=== PATIENT | female | born 1985 | race Two or more races ===

== ENCOUNTER 2024-08-26 11:03 | Emergency (ER) | payer MEDICAID, SELFPAY ==
--- NOTE | 2024-08-26 11:32 | EDNOTE_ITS ---
ED Wound/Laceration-RME/HPI General Chief Complaint: Wound/Laceration Stated Complaint: RIGHT THUMB LAC Time Seen by Provider: 08/26/24 11:30 Source: patient Arrival date/time: 08/26/24 11:03 39-year-old female with no known medical history presents to the emergency room with a chief complaint of a laceration to the right thumb that occurred while she was opening up a can. Mode of arrival: ambulatory Limitations: no limitations Related Data Previous Rx's ?Medication ?Instructions ?Recorded cephalexin 500 mg capsule 500 mg PO BID 7 days #14 caps 08/26/24 Allergies Allergy/AdvReac Type Severity Reaction Status Date / Time No Known Allergies Allergy Verified 07/01/21 20:18 Review of Systems Review of Systems Systems Reviewed: All systems reviewed, normal except as documented Constitutional Constitutional: Reports system reviewed and no additional complaints, except as documented, Denies fatigue, Denies fever(s), Denies headache(s) and Denies weakness Eyes Eyes: Reports system reviewed and no additional complaints, except as documented, Denies blurry vision and Denies change in vision ENT Ears, Nose, Mouth, and Throat: Reports system reviewed and no additional complaints, except as documented, Denies otalgia, Denies headache(s), Denies nasal congestion, Denies throat swelling and Denies vertigo Cardiovascular Cardiovascular: Reports system reviewed and no additional complaints, except as documented, Denies chest pain, Denies dyspnea and Denies dyspnea on exertion Respiratory Respiratory: Reports system reviewed and no additional complaints, except as documented, Denies chest congestion, Denies cough, Denies dyspnea, Denies dyspnea on exertion and Denies wheezing Gastrointestinal Gastrointestinal: Reports system reviewed and no additional complaints, except as documented, Denies abdominal pain, Denies cramping, Denies nausea and Denies vomiting Genitourinary Genitourinary: Reports system reviewed and no additional complaints, except as documented Musculoskeletal Musculoskeletal: Reports system reviewed and no additional complaints, except as documented and Denies back pain Integumentary/Breasts Skin/Breast: Reports system reviewed and no additional complaints, except as documented and Reports wounds (Laceration to the right thumb) Neurologic Neurologic: Reports system reviewed and no additional complaints, except as documented, Denies confusion, Denies headache(s), Denies lack of coordination, Denies vertigo and Denies weakness Psychiatric Psychiatric: Reports system reviewed and no additional complaints, except as documented, Denies anxiety, Denies confusion, Denies depression, Denies paranoia, Denies suicidal ideation and Denies tactile hallucinations Endocrine Endocrine: Reports system reviewed and no additional complaints, except as documented and Denies fatigue Hematologic/Lymphatic Hematologic/Lymphatic: Reports system reviewed and no additional complaints, except as documented and Denies lymphadenopathy Allergic/Immunologic Allergic/Immunologic: Reports system reviewed and no additional complaints, except as documented, Denies throat swelling, Denies urticaria and Denies wheezing Past Medical History Past Medical History CARDIAC: Negative Congestive Heart Failure RESPIRATORY: Negative Chronic Obstructive Pulmonary Disease (COPD) GENITOURINARY: Negative Renal Disease ENDOCRINE: Negative Diabetes Mellitus Type 1 or Diabetes Mellitus Type 2 Social History SMOKING STATUS: Never smoker ED Exam General Limitations: Present no limitations General appearance: Present alert and in no apparent distress Head Head exam: Present atraumatic Eye Eye exam: Present normal appearance, PERRL and EOMI ENT ENT exam: Present normal exam, normal oropharynx and mucous membranes moist Neck Neck exam: Present normal inspection, full ROM and trachea midline Chest Chest inspection: Present normal inspection and symmetric chest wall rise Respiratory Respiratory exam: Present normal lung sounds bilaterally Cardiovascular Cardiovascular exam: Present regular rate, normal rhythm and normal heart sounds Abdominal Exam Abdominal exam: Present soft and normal bowel sounds Extremities Exam Extremities exam: Present normal inspection and full ROM Expanded Upper Extremity Exam Shoulder exam: Present normal inspection Arm exam: Present normal inspection Elbow exam: Present normal inspection Forearm/Wrist exam: Present normal inspection Hand exam: Present tenderness, swelling and laceration Vascular exam: Normal capillary refill Back Exam Back exam: Present normal inspection and full ROM Neurological Exam Neurological exam: Present alert, oriented X3 and CN II-XII intact Psychiatric Psychiatric exam: Present normal affect and normal mood Skin Skin exam: Present warm, dry, intact and normal color Expanded Skin Exam Type of lesion: Present laceration Distribution: Present RUE Description: Present size and tenderness Course Quality Measures none Orders Category Date Time Status Set Up Suture Tray STAT Care 08/26/24 11:32 Active Wound Care NOW Care 08/26/24 11:32 Active Lidocaine 1% 20 ml [Xylocaine 1% 20 ML] Med 08/26/24 11:32 Discontinued 20 ml INFL X1 ONE Tet,Diphth,Pertuss(Acell)-Tdap [Boostrix Vacc] Med 08/26/24 11:32 Discontinued 0.5 ml IMI .ONCE ONE Vital Signs Vital signs: Vital Signs Temperature 98.4 F 08/26/24 12:00 Pulse Rate 77 08/26/24 12:00 Respiratory Rate 16 08/26/24 12:00 Blood Pressure 114/79 08/26/24 12:00 Pulse Oximetry (%) 98 08/26/24 12:00 Oxygen Delivery Method Room Air 08/26/24 12:00 Wound / Laceration MDM Narrative MDM Narrative:: 39-year-old female with no known medical history presents to the emergency room with a chief complaint of a laceration to the right thumb that occurred while she was opening up a can. Clinically the patient appears nontoxic and in no apparent distress. Physical examination shows a 4 cm irregular laceration to her right thumb that occurred while she was opening up a can with a can plasticator. The area was cleaned and prepped with Betadine a digital block was used with lidocaine. 8 regular four 0-0 sutures nylon were used to close and approximate the wound a dressing was placed tetanus vaccination was updated patient was discharged and educated to follow-up with primary care provider and return to the emergency room for any evidence of worsening signs or symptoms Patient data External records reviewed:: [facility] previous records Clinical information provided by:: patient Social determinants that could affect healthcare access:: none Patient has the following chronic illnesses:: N/A How is presenting disease/condition affected by chronic disease/condition?: no chronic disease Evaluation data The following diagnostics were reviewed and interpreted by me:: lab results and radiology exam(s) Lab and/or radiology exams considered but not ordered:: Labs and radiology exams considered but not ordered Interpretation Summary: N/A Medications / Prescriptions Medications or Prescriptions considered but not ordered:: Medication given Medication administrations:: Medication Administration History Discontinued Medications Diphtheria/Tetanus/Acell Pertussis (Diphth,Pertuss(Acell),Tet Vac 0.5 Ml Vial) 0.5 ml IMi .ONCE ONE Stop: 08/26/24 11:33 Last Admin: 08/26/24 11:39 Dose: 0.5 ml Documented By: DO Lidocaine HCl (Lidocaine Hcl 1% 20 Ml Vial) 20 ml INFL X1 ONE Stop: 08/26/24 11:33 Medication given Consultations Consultation(s) initiated? (list below): No Diagnosis Wound Differential Diagnosis: laceration, abrasion and avulsion of skin Most likely diagnosis given after review of the tests above:: Laceration Admission Indicated Admission indicated?: not indicated Admission Request Was there a request for admission?: No Disposition Plan Disposition Plan: Discharge Discharge Attestation Discharge Attestation: The patient and all family members were given an opportunity to ask questions and understood the discharge instructions. Discharge instructions specifically effects, indications for sooner follow up or return to the emergency department, and the expected course of current diagnosis. Patient condition: Stable Discharge Plan Plan Patient Disposition: HOME (Self Care) Disposition Comment: Stable Prescriptions/Referrals Prescriptions/Med Rec: New cephalexin 500 mg capsule 500 mg PO BID 7 Days Qty: 14 0RF Referrals: Danae Gregorio PA-C [Primary Care Provider] - In 1 week Problem List Clinical Impression: Laceration Patient/Caregiver Discharge Instructions Additional Instructions: Please follow-up with your primary care provider in the next 24 to 48 hours. You can return in 7 to 10 days for suture removal or follow-up with your primary care provider. For any evidence of worsening signs or symptoms please return to the emergency room immediately. Antibiotics are sent to your pharmacy please pick them up and take them as indicated. Please keep the area clean and dry Print Language: Arabic Stand Alone Forms: Parisa Award Info., Patient Portal Info Letter Vaccines Vaccines Given During Stay: TDaP NELLA/HAYLEY Supervising Physician HELENA Supervising Physician: Dr. Tolentino
[2024-08-26] MEDS: DIPHTH,PERTUSS(ACELL),TET VAC 0.5 ML VIAL IMi (11:39)
[2024-08-26 12:00] VITALS: BP 114/79; PULSE 77; RESP 16; TEMP 36.9; O2SAT 98; BMI 40.5
== END 2024-08-26 13:14 | disposition home or self-care (01) ==
PROVIDERS: Emergency Provider Emergency Medicine; PCP Physician Assistant
DX: S61.011A Laceration without foreign body of right thumb without damage to nail, initial encounter (principal); W26.8XXA Contact with other sharp object(s), not elsewhere classified, initial encounter; Z23 Encounter for immunization
CPT/HCPCS: 12002; 90471; 90715; 99283

== ENCOUNTER 2024-09-03 06:15 | Emergency (ER) | payer MEDICAID, SELFPAY ==
[2024-09-03 06:21] VITALS: BP 101/70; PULSE 82; RESP 18; TEMP 36.8; O2SAT 96
[2024-09-03] MEDS: cefTRIAXone 1,000 MG, LIDOCAINE 1% 20 ML 2.1 ML IM (06:57)
[2024-09-03] MEDS: ACETAMINOPHEN 500 MG TABLET 1000 MG PO (06:57)
--- NOTE | 2024-09-03 07:01 | EDNOTE_ITS ---
<Statement entered by Yesy Montoya MD - 09/03/24 07:39> As co-signing physician, I was present and available for consult prn. I concur with the plan and care as documented by the midlevel provider. ED Wound/Laceration-RME/HPI General Chief Complaint: Wound Recheck / Suture Removal Stated Complaint: SUTURE REMOVAL Time Seen by Provider: 09/03/24 06:26 Source: patient Arrival date/time: 09/03/24 06:15 This is a 39-year-old female who presents to the emergency department and request for suture removal of her right thumb. She reports she has had the sutures in for 8 days. Patient has noticed that her finger is slightly swollen and tender to palpation mild erythemic. She does report she took a course of antibiotics. Does states she did not wash or cleanse wound for the last 6 days. Has not followed up with her PCP for wound recheck. Denies fever, chills CMS intact. Mode of arrival: ambulatory Related Data Previous Rx's ?Medication ?Instructions ?Recorded mupirocin 2 % topical ointment 1 applic topical BID 7 days #15 09/03/24 grams sulfamethoxazole 800 1 tab PO BID 7 days #14 tabs 09/03/24 mg-trimethoprim 160 mg tablet (Bactrim DS) Allergies Allergy/AdvReac Type Severity Reaction Status Date / Time No Known Allergies Allergy Verified 09/03/24 06:17 Review of Systems Review of Systems Systems Reviewed: All systems reviewed, normal except as documented Narrative Review of Systems: Gen: No fever, no chills, no weight loss EYES: No discharge, no visual changes, no pain HEENT: No ear pain, no congestion, no sore throat PULM: No shortness of breath, no cough, no congestion CV: No chest pain, no dyspnea on exertion, no palpitations GI: No nausea, no vomiting, no diarrhea, no pain, no constipation : No frequency, no urgency, no dysuria Musc/skel: No joint pain, no back pain Skin: Suture removal, right thumb swelling erythema Psyc: No hallucinations, no depression Heme/Lymph: No easy bleeding or bruising tendencies Neuro: No weakness, no headache ED Exam Narrative Physical exam: General: Sittiing in Exam table in no acute distress, answering questions appropriately HENT: normocephalic, atraumatic, EOMI, PERRLA, moist mucous membranes Chest: chest wall is nontender Cardiac: regular rate and rhythm, normal S1 and S2, no murmurs, rubs, or gallops, capillary refill ?2 seconds Pulmonary: clear to auscultation bilaterally, no wheezing, crackles, or rhonchi Abdominal: active bowel sounds, soft, nontender, nondistended Neuro: A&OX3, CN II-XII intact, sensation grossly intact bilaterally in UE and LE. Skin: Palmar aspect right first digit swelling erythemic sutures intact tender to palpation no drainage noted Ext: no lower extremity edema Course Quality Measures none Orders Category Date Time Status Acetaminophen Tab [Tylenol ES Tab] Med 09/03/24 06:51 Discontinued 1,000 mg PO X1 ONE cefTRIAXone [Rocephin] 1,000 mg Med 09/03/24 06:51 Discontinued Lidocaine 1% 20 ml [Xylocaine 1% 20 ML] 2.1 ml IM X1 Vital Signs Vital signs: Vital Signs Temperature 98.3 F 09/03/24 06:21 Pulse Rate 82 09/03/24 06:21 Respiratory Rate 18 09/03/24 06:21 Blood Pressure 101/70 09/03/24 06:21 Pulse Oximetry (%) 96 09/03/24 06:21 Oxygen Delivery Method Room Air 09/03/24 06:21 Wound / Laceration MDM Narrative MDM Narrative:: 39-year-old female here for evaluation of suture removal first digit right. I did go ahead and removed all the sutures patient tolerated however did experience pain the pulp of her thumb is inflamed and erythemic possible secondary infection. I will treat with Bactrim and mupirocin. Wound care provided advised to follow-up with her doctor in 2 days for wound recheck. Return to the emergency department this any worsening symptoms using addition. Patient data External records reviewed:: [facility] previous records Clinical information provided by:: patient Social determinants that could affect healthcare access:: none Patient has the following chronic illnesses:: None How is presenting disease/condition affected by chronic disease/condition?: no chronic disease Evaluation data The following diagnostics were reviewed and interpreted by me:: other (specify) Lab and/or radiology exams considered but not ordered:: No Interpretation Summary: No Medications / Prescriptions Medications or Prescriptions considered but not ordered:: No Medication administrations:: Medication Administration History Discontinued Medications Acetaminophen (Acetaminophen 500 Mg Tablet) 1,000 mg PO X1 ONE Stop: 09/03/24 06:52 Last Admin: 09/03/24 06:57 Dose: 1,000 mg Documented By: HARLEY Ceftriaxone Sodium 1,000 mg/ (Lidocaine HCl 2.1 ml) 0 mg IM X1 ONE Stop: 09/03/24 06:52 Last Admin: 09/03/24 06:57 Dose: 2.1 mg Documented By: HARLEY All medications administered and effective Consultations Consultation(s) initiated? (list below): No Diagnosis Wound Differential Diagnosis: laceration, abscess, abrasion and avulsion of skin Most likely diagnosis given after review of the tests above:: Suture removal infected cellulitis right thumb Admission Indicated Admission indicated?: not indicated Admission Request Was there a request for admission?: No Disposition Plan Disposition Plan: Discharge Discharge Attestation Discharge Attestation: The patient and all family members were given an opportunity to ask questions and understood the discharge instructions. Discharge instructions specifically effects, indications for sooner follow up or return to the emergency department, and the expected course of current diagnosis. Patient condition: Stable Discharge Plan Plan Patient Disposition: HOME (Self Care) Patient condition on transfer: Stable Prescriptions/Referrals Prescriptions/Med Rec: New sulfamethoxazole-trimethoprim [Bactrim DS] 800-160 mg tablet 1 tab PO BID 7 Days Qty: 14 0RF mupirocin 2 % ointment 1 applic topical BID 7 Days Qty: 15 0RF Problem List Clinical Impression: Visit for suture removal, Infected wound Patient/Caregiver Discharge Instructions Discharge Activity: activity as tolerated Education Materials: ED Suture Removal, Infected Wound Additional Instructions: It is very important that you start antibiotics today apply the antibiotic ointment as directed 3 times a day for 5 to 7 days. Please very important to keep moving your finger bending do not keep still which can worsen your symptoms. Please follow-up with your primary doctor in 2 days for wound recheck. Return to the emergency department with any worsening symptoms change in condition. Print Language: Turkmen Stand Alone Forms: Parisa Award Info., Patient Portal Info Letter PA/HAYLEY Supervising Physician NELLA/HAYLEY Supervising Physician: Dr. Santana
== END 2024-09-03 07:10 | disposition home or self-care (01) ==
LOC: SERX 07:25
PROVIDERS: Emergency Provider Emergency Medicine; PCP Physician Assistant
DX: S61.011D Laceration without foreign body of right thumb without damage to nail, subsequent encounter (principal); L03.011 Cellulitis of right finger; X58.XXXD Exposure to other specified factors, subsequent encounter
CPT/HCPCS: 96372; 99283; J0696; J3490; A9270